=== PATIENT | female | born 2000 | race Caucasian/White ===

== ENCOUNTER 2021-11-03 12:06 | Emergency (ER) | payer OTHER, MEDICAID, SELFPAY ==
[2021-11-03 12:10] VITALS: BP 143/92; PULSE 88; RESP 18; TEMP 37.2; O2SAT 99; BMI 26.4
--- NOTE | 2021-11-03 12:34 | DI.RAD.S_ITS ---
PROCEDURE: XR CHEST 1V INDICATIONS: chest pain TECHNIQUE: One view of the chest was acquired. COMPARISON: None. FINDINGS: Surgical changes and devices: None. Lungs and pleura: On this semiupright portable chest examination, no large pneumothorax or large pleural effusions are seen. No focal infiltrates are seen. Mediastinum: Mediastinal contours appear normal. Heart size is normal. Bones and chest wall: No suspicious bony lesions. Overlying soft tissues appear unremarkable. IMPRESSION: Normal portable chest. Dictated by: Nabil Magana M.D. on 11/03/2021 at 11:43 Approved by: Nabil Magana M.D. on 11/03/2021 at 11:44
[2021-11-03 13:24] VITALS: BP 140/90; PULSE 89; RESP 18; TEMP 36.8; O2SAT 98
[2021-11-03 13:35] LABS: Add Manual Diff / Slide Review NO; Basophils Absolute Auto 100 /uL (0-100); Basophils Percent Auto 1.1 % (0-2); Eosinophils Absolute Auto 0 /uL (0-450); Eosinophils Percent Auto 0.4 % (2-4); Hemoglobin 12.3 g/dL (12.0-16.0); Lymphocytes Absolute Auto 2000 /uL (1100-4500); Lymphocytes Percent Auto 28.3 % (25-40); Mean Corpuscular HGB Conc 33.3 % (30-36); Mean Corpuscular Hemoglobin 24.2 PG (26-34); Mean Corpuscular Volume 72.8 fL (80-100); Monocytes Absolute Auto 400 /uL (0-900); Monocytes Percent Auto 5.9 % (3-14); Neutrophils Absolute Auto 4500 /uL (1500-7000); Neutrophils Percent Auto 64.3 % (50-75); Platelet Count 340 X10^3/uL (150-400); Red Blood Cell Count 5.09 X10^6/uL (4.0-5.2); Red Cell Distribution Width 15.4 % (11.6-14.8); White Blood Cell Count 7.1 X10^3/uL (4.5-11.0)
[2021-11-03 13:48] LABS: Alanine Aminotransferase 25 IU/L (<35); Albumin 4.5 g/dL (3.5-5.0); Albumin Globulin Ratio 1.1 (1.0-2.8); Alkaline Phosphatase 121 U/L (38-126); Aspartate Aminotransferase 24 IU/L (14-36); BUN Creatinine Ratio 8.9 (6-22); Bilirubin Total 0.5 mg/dL (0.2-1.3); Blood Urea Nitrogen 7 mg/dL (7-17); Calcium 9.7 mg/dL (8.4-10.2); Carbon Dioxide 23 mmol/L (22-32); Chloride 105 mmol/L (98-107); Creatine Kinase 43 U/L (30-135); Estimated Glomerular Filt Rate > 60 mL/min (>60); Globulin 4.1 g/dL (1.7-4.1); Glucose 101 mg/dL (70-100); HEMOLYSIS < 15 (0-50); Lipase 67 U/L (23-300); Magnesium 2.1 mg/dL (1.6-2.3); Potassium 3.8 mmol/L (3.4-5.1); Sodium 138 mmol/L (137-145); Total Protein 8.6 g/dL (6.3-8.2)
[2021-11-03 14:00] LABS: Troponin I < 0.012 ng/mL (0.01-0.034)
[2021-11-03 14:21] LABS: Amorphous Sediment Urine 1+; Bacteria Urine Few (2-10); Ictotest Urine Negative (Negative); Mucus Urine 1+ (Negative); RBC Urine None Seen (0-5/HPF); Squamous Epithelial Cell Urine 1-5 /HPF (0-5/HPF); WBC Urine 1-5/HPF (0-5/HPF)
[2021-11-03 15:40] VITALS: BP 156/94; PULSE 92; RESP 18; O2SAT 99
[2021-11-03 16:00] VITALS: BP 132/83; PULSE 78; RESP 14; O2SAT 99
--- NOTE | 2021-11-03 16:11 | ED.CHESTPAIN ---
HPI - Chest Pain <Danielito Corrales PA-C - Last Filed: 11/03/21 20:23> General Chief Complaint: Chest Pain Stated Complaint: Chest Tightness/Heavy Arms/Shakey/Light Headed Time Seen by Provider: 11/03/21 12:55 Source: patient Mode of arrival: Ambulatory Limitations: no limitations History of Present Illness HPI narrative: Patient is a 21-year-old female presenting to the emergency department today for an evaluation chest pain. Patient explains that she began to experience chest heaviness today with associated lightheadedness. She notes that the chest achiness is diffuse throughout the chest without any alleviating or exacerbating factors. Patient denies fever, chills, cough, shortness of breath, nausea, vomiting, diarrhea, constipation, abdominal pain, dysuria, hematuria, jaw pain, pain in the upper extremities, syncope, or any other concerning symptoms. She states that she has been feeling well prior to the onset of her symptoms and denies recent upper respiratory infection symptoms. No further concerns were voiced at this time. Related Data Previous Rx's Medication Instructions Recorded nystatin 100,000 unit/gram topical 1 applic TOPICAL BID #15 g 10/11/20 cream dextroamphetamine-amphetamine 20 20 mg PO BID #60 tab 10/29/21 mg tablet (Adderall) Allergies Allergy/AdvReac Type Severity Reaction Status Date / Time No Known Drug Allergies Allergy Unverified 04/12/21 15:11 Review of Systems <Danielito Corrales PA-C - Last Filed: 11/03/21 20:23> Constitutional Constitutional: Denies chills, Denies fatigue, Denies fever(s), Denies frequent falls, Denies lethargy and Denies weakness Eyes Eyes: Denies loss of vision ENT Ears, Nose, Mouth, and Throat: Denies dizziness and Denies neck pain Cardiovascular Cardiovascular: Reports chest pain, Denies irregular heart rhythm, Denies lightheadedness, Denies palpitations, Denies dyspnea, Denies dyspnea on exertion and Denies orthopnea Respiratory Respiratory: Denies cough, Denies dyspnea, Denies dyspnea on exertion and Denies wheezing Gastrointestinal Gastrointestinal: Denies abdominal pain, Denies change in bowel habits, Denies diarrhea, Denies nausea and Denies vomiting Genitourinary Genitourinary: Denies hematuria, Denies flank pain, Denies urinary incontinence and Denies urinary urgency Musculoskeletal Musculoskeletal: Denies back pain, Denies muscle weakness, Denies neck pain, Denies numbness and Denies tingling Integumentary/Breasts Skin/Breast: Denies pruritus, Denies erythema, Denies rash and Denies wounds Neurologic Neurologic: Denies behavioral changes, Denies confusion, Denies dizziness, Denies frequent falls, Denies loss of vision, Denies numbness, Denies tingling, Denies weakness and Reports other (Lightheaded) Psychiatric Psychiatric: Denies behavioral changes and Denies confusion Endocrine Endocrine: Denies fatigue and Denies palpitations Allergic/Immunologic Allergic/Immunologic: Denies wheezing Patient History <Danielito Corrales PA-C - Last Filed: 11/03/21 20:23> Medical History Acne ADHD (~2004) Pearl infection Eustachian tube dysfunction Family History Grandfather Diabetes mellitus Hyperlipidemia Hypertension Grandmother Hypertension Hyperlipidemia History of heart disease Social History Smoking Status: Never smoker Smoking Status: Never smoker Substance Use Type: does not use Exam <Danielito Corrales PA-C - Last Filed: 11/03/21 20:23> Narrative Exam Narrative: GENERAL: 21 year old patient appears stated age. Well-developed patient, in no acute distress. HEAD: Atraumatic. Normocephalic. EYES: Pupils equal round and reactive. Extraocular motions intact. No scleral icterus. No injection or drainage. ENT: Nose without bleeding, purulent drainage. Throat without erythema, tonsillar hypertrophy or exudate. Airway patent. NECK: Trachea midline. Non tender CARDIOVASCULAR: Tachycardic but regular rhythm without murmurs, gallops, or rubs. RESPIRATORY: Clear to auscultation. Breath sounds equal bilaterally. No wheezes, rales, or rhonchi. GASTROINTESTINAL: Abdomen soft, non-tender, nondistended. EXTREMITIES: No edema or joint tenderness. BACK: Nontender without deformity or crepitance. No flank tenderness. NEURO: AOx3. SKIN: No rash or erythema of visible areas Initial Vital Signs Initial Vital Signs: Vital Signs Temperature 99 F 04/16/22 12:10 Pulse Rate 88 11/03/21 12:10 Respiratory Rate 18 11/03/21 12:10 Blood Pressure 143/92 H 11/03/21 12:10 Pulse Oximetry 99 11/03/21 12:10 <aSndra Nick MD - Last Filed: 11/10/21 07:20> Initial Vital Signs Initial Vital Signs: Vital Signs Temperature 99 F 11/03/21 12:10 Pulse Rate 88 11/03/21 12:10 Respiratory Rate 18 11/03/21 12:10 Blood Pressure 143/92 H 11/03/21 12:10 Pulse Oximetry 99 11/03/21 12:10 Course <Danielito Corrales PA-C - Last Filed: 11/03/21 20:23> Course Course Narrative: CBC, CMP, lipase, magnesium, troponin with repeat troponin, ictotest, urine dip, urinalysis, urine culture, EKG, chest x-ray obtained. I discussed results lab studies and imaging with patient and informed her that I will be running a repeat troponin to ensure that there is no elevation. Orders Ordered: ED Orders 11/03/21 12:31 EKG-12 Lead Stat 11/03/21 12:34 XR chest 1V Stat 11/03/21 13:28 Complete Blood Count AUTO DIFF Stat Comprehensive Metabolic Panel Stat Lipase Stat Magnesium Stat Troponin & CK Cardiac Panel Stat 11/03/21 13:40 Ictotest Urine Stat Urine Culture Stat Urine Microscopic Stat 11/03/21 15:43 Trop I [Troponin I] Stat Vital Signs Vital signs: Vital Signs - 8 hr 11/03/21 13:24 11/03/21 15:40 11/03/21 16:00 Temperature 98.2 F Pulse Rate 89 92 H 78 Respiratory Rate 18 18 14 Blood Pressure 140/90 156/94 H 132/83 Pulse Oximetry 98 99 99 11/03/21 16:30 Temperature Pulse Rate 73 Respiratory Rate 16 Blood Pressure 129/87 Pulse Oximetry 100 <Sandra Nick MD - Last Filed: 11/10/21 07:20> Orders Ordered: ED Orders 11/03/21 12:31 EKG-12 Lead Stat 11/03/21 12:34 XR chest 1V Stat 11/03/21 13:28 Complete Blood Count AUTO DIFF Stat Comprehensive Metabolic Panel Stat Lipase Stat Magnesium Stat Troponin & CK Cardiac Panel Stat 11/03/21 13:40 Ictotest Urine Stat Urine Culture Stat Urine Microscopic Stat 11/03/21 15:43 Trop I [Troponin I] Stat Vital Signs Vital signs: Vital Signs - 8 hr 11/03/21 13:24 11/03/21 15:40 11/03/21 16:00 Temperature 98.2 F Pulse Rate 89 92 H 78 Respiratory Rate 18 18 14 Blood Pressure 140/90 156/94 H 132/83 Pulse Oximetry 98 99 99 11/03/21 16:30 Temperature Pulse Rate 73 Respiratory Rate 16 Blood Pressure 129/87 Pulse Oximetry 100 MDM - Chest Pain <Danielito Corrales PA-C - Last Filed: 11/03/21 20:23> Lab Data Result diagrams: 11/03/21 13:28 11/03/21 13:28 Labs: Lab Results 11/03/21 11/03/21 11/03/21 Range/Units 13:28 13:28 13:40 WBC 7.1 (4.5-11.0) X10^3/uL RBC 5.09 (4.0-5.2) X10^6/uL Hgb 12.3 (12.0-16.0) g/dL Hct 37.0 (36-46) % MCV 72.8 L (80-100) fL MCH 24.2 L (26-34) PG MCHC 33.3 (30-36) % RDW 15.4 H (11.6-14.8) % Plt Count 340 (150-400) X10^3/uL Neut % (Auto) 64.3 (50-75) % Lymph % (Auto) 28.3 (25-40) % Petroleum % (Auto) 5.9 (3-14) % Eos % (Auto) 0.4 L (2-4) % Baso % (Auto) 1.1 (0-2) % Neut # (Auto) 4500 (9832-8454) /uL Lymph # (Auto) 2000 (6126-3240) /uL Petroleum # (Auto) 400 (0-900) /uL Eos # (Auto) 0 (0-450) /uL Baso # (Auto) 100 (0-100) /uL Sodium 138 (137-145) mmol/L Potassium 3.8 (3.4-5.1) mmol/L Chloride 105 (98-107) mmol/L Carbon Dioxide 23 (22-32) mmol/L BUN 7 (7-17) mg/dL Creatinine 0.79 (0.52-1.04) mg/dL Estimated GFR > 60 (>60) mL/min BUN/Creatinine Ratio 8.9 (6-22) Glucose 101 H (70-100) mg/dL Calcium 9.7 (8.4-10.2) mg/dL Magnesium 2.1 (1.6-2.3) mg/dL Total Bilirubin 0.5 (0.2-1.3) mg/dL AST 24 (14-36) IU/L ALT 25 (<35) IU/L Alkaline Phosphatase 121 (38-126) U/L Total Creatine Kinase 43 (30-135) U/L CK-MB (CK-2) TNP CK-MB (CK-2) Rel Index TNP Troponin I < 0.012 (0.01-0.034) ng/mL Total Protein 8.6 H (6.3-8.2) g/dL Albumin 4.5 (3.5-5.0) g/dL Globulin 4.1 (1.7-4.1) g/dL Albumin/Globulin Ratio 1.1 (1.0-2.8) Lipase 67 (23-300) U/L Ur Bilirubin Confirm Negative (Negative) Urine RBC None seen (0-5/HPF) Urine WBC 1-5/hpf (0-5/HPF) Ur Squamous Epith Cells 1-5 /hpf (0-5/HPF) Amorphous Sediment 1+ Urine Bacteria Few (2-10) H (None) Urine Mucus 1+ H (Negative) Ur Culture Indicated? Culture not indicate 11/03/21 Range/Units 15:43 WBC (4.5-11.0) X10^3/uL RBC (4.0-5.2) X10^6/uL Hgb (12.0-16.0) g/dL Hct (36-46) % MCV (80-100) fL MCH (26-34) PG MCHC (30-36) % RDW (11.6-14.8) % Plt Count (150-400) X10^3/uL Neut % (Auto) (50-75) % Lymph % (Auto) (25-40) % Petroleum % (Auto) (3-14) % Eos % (Auto) (2-4) % Baso % (Auto) (0-2) % Neut # (Auto) (5312-6153) /uL Lymph # (Auto) (5826-9844) /uL Petroleum # (Auto) (0-900) /uL Eos # (Auto) (0-450) /uL Baso # (Auto) (0-100) /uL Sodium (137-145) mmol/L Potassium (3.4-5.1) mmol/L Chloride (98-107) mmol/L Carbon Dioxide (22-32) mmol/L BUN (7-17) mg/dL Creatinine (0.52-1.04) mg/dL Estimated GFR (>60) mL/min BUN/Creatinine Ratio (6-22) Glucose (70-100) mg/dL Calcium (8.4-10.2) mg/dL Magnesium (1.6-2.3) mg/dL Total Bilirubin (0.2-1.3) mg/dL AST (14-36) IU/L ALT (<35) IU/L Alkaline Phosphatase (38-126) U/L Total Creatine Kinase (30-135) U/L CK-MB (CK-2) CK-MB (CK-2) Rel Index Troponin I < 0.012 (0.01-0.034) ng/mL Total Protein (6.3-8.2) g/dL Albumin (3.5-5.0) g/dL Globulin (1.7-4.1) g/dL Albumin/Globulin Ratio (1.0-2.8) Lipase (23-300) U/L Ur Bilirubin Confirm (Negative) Urine RBC (0-5/HPF) Urine WBC (0-5/HPF) Ur Squamous Epith Cells (0-5/HPF) Amorphous Sediment Urine Bacteria (None) Urine Mucus (Negative) Ur Culture Indicated? Point of Care Testing Test Results Negative Urine Dip Bedside Urine Glucose Negative Bedside Urine Bilirubin + 1 Bedside Urine Ketone - Negative Urine Specific Mcnary 1.030 Bedside Urine Occult Blood - Negative Bedside Urine pH 6 Bedside Urine Protein +/- 15 Bedside Urine Urobilinogen - Negative Bedside Urine Nitrite - Negative Bedside Urine Leukocytes - Negative Esterase Imaging Data Chest x-ray: Radiologist's Impression: PROCEDURE:? XR CHEST 1V ? INDICATIONS:? chest pain ? TECHNIQUE:? One view of the chest was acquired.? ? COMPARISON:? None. ? FINDINGS:? ? Surgical changes and devices:? None.? ? Lungs and pleura:? On this semiupright portable chest examination, no large pneumothorax or large pleural effusions are seen.? No focal infiltrates are seen.? ? Mediastinum:? Mediastinal contours appear normal.? Heart size is normal.? ? Bones and chest wall:? No suspicious bony lesions.? Overlying soft tissues appear unremarkable.? IMPRESSION:? ? Normal portable chest. ? ? Dictated by: Nabil Magana M.D. on 11/03/2021 at 11:43 ? ? Approved by: Nabil Magana M.D. on 11/03/2021 at 11:44? MDM Narrative Medical decision making narrative: Differential diagnosis to consider but not limited to acute coronary syndrome versus myocardial infarction versus pneumonia versus costochondritis versus atypical chest pain versus musculoskeletal chest pain versus rib fracture versus anxiety. I discussed results of x-ray and lab studies with patient and informed her that no acute abnormality was identified today that would require emergent intervention or admission to hospital. I encouraged the patient to follow-up with her primary care provider regarding the symptoms in her increased blood pressure. Patient's blood pressure has dropped since initial evaluation, however I did urge her to follow up with her primary care provider to ensure that her blood pressure remains within normal limits. She expresses understanding and agrees to plan. She states that this time she is comfortable being discharged home and is stable for discharge. Strict return precautions were discussed with the patient prior to discharge. <Sandra Nick MD - Last Filed: 11/10/21 07:20> Lab Data Labs: Lab Results 11/03/21 11/03/21 11/03/21 Range/Units 13:28 13:28 13:40 WBC 7.1 (4.5-11.0) X10^3/uL RBC 5.09 (4.0-5.2) X10^6/uL Hgb 12.3 (12.0-16.0) g/dL Hct 37.0 (36-46) % MCV 72.8 L (80-100) fL MCH 24.2 L (26-34) PG MCHC 33.3 (30-36) % RDW 15.4 H (11.6-14.8) % Plt Count 340 (150-400) X10^3/uL Neut % (Auto) 64.3 (50-75) % Lymph % (Auto) 28.3 (25-40) % Petroleum % (Auto) 5.9 (3-14) % Eos % (Auto) 0.4 L (2-4) % Baso % (Auto) 1.1 (0-2) % Neut # (Auto) 4500 (1810-2751) /uL Lymph # (Auto) 2000 (1648-6782) /uL Petroleum # (Auto) 400 (0-900) /uL Eos # (Auto) 0 (0-450) /uL Baso # (Auto) 100 (0-100) /uL Sodium 138 (137-145) mmol/L Potassium 3.8 (3.4-5.1) mmol/L Chloride 105 (98-107) mmol/L Carbon Dioxide 23 (22-32) mmol/L BUN 7 (7-17) mg/dL Creatinine 0.79 (0.52-1.04) mg/dL Estimated GFR > 60 (>60) mL/min BUN/Creatinine Ratio 8.9 (6-22) Glucose 101 H (70-100) mg/dL Calcium 9.7 (8.4-10.2) mg/dL Magnesium 2.1 (1.6-2.3) mg/dL Total Bilirubin 0.5 (0.2-1.3) mg/dL AST 24 (14-36) IU/L ALT 25 (<35) IU/L Alkaline Phosphatase 121 (38-126) U/L Total Creatine Kinase 43 (30-135) U/L CK-MB (CK-2) TNP CK-MB (CK-2) Rel Index TNP Troponin I < 0.012 (0.01-0.034) ng/mL Total Protein 8.6 H (6.3-8.2) g/dL Albumin 4.5 (3.5-5.0) g/dL Globulin 4.1 (1.7-4.1) g/dL Albumin/Globulin Ratio 1.1 (1.0-2.8) Lipase 67 (23-300) U/L Ur Bilirubin Confirm Negative (Negative) Urine RBC None seen (0-5/HPF) Urine WBC 1-5/hpf (0-5/HPF) Ur Squamous Epith Cells 1-5 /hpf (0-5/HPF) Amorphous Sediment 1+ Urine Bacteria Few (2-10) H (None) Urine Mucus 1+ H (Negative) Ur Culture Indicated? Culture not indicate 11/03/21 Range/Units 15:43 WBC (4.5-11.0) X10^3/uL RBC (4.0-5.2) X10^6/uL Hgb (12.0-16.0) g/dL Hct (36-46) % MCV (80-100) fL MCH (26-34) PG MCHC (30-36) % RDW (11.6-14.8) % Plt Count (150-400) X10^3/uL Neut % (Auto) (50-75) % Lymph % (Auto) (25-40) % Petroleum % (Auto) (3-14) % Eos % (Auto) (2-4) % Baso % (Auto) (0-2) % Neut # (Auto) (2931-2157) /uL Lymph # (Auto) (7153-4635) /uL Petroleum # (Auto) (0-900) /uL Eos # (Auto) (0-450) /uL Baso # (Auto) (0-100) /uL Sodium (137-145) mmol/L Potassium (3.4-5.1) mmol/L Chloride (98-107) mmol/L Carbon Dioxide (22-32) mmol/L BUN (7-17) mg/dL Creatinine (0.52-1.04) mg/dL Estimated GFR (>60) mL/min BUN/Creatinine Ratio (6-22) Glucose (70-100) mg/dL Calcium (8.4-10.2) mg/dL Magnesium (1.6-2.3) mg/dL Total Bilirubin (0.2-1.3) mg/dL AST (14-36) IU/L ALT (<35) IU/L Alkaline Phosphatase (38-126) U/L Total Creatine Kinase (30-135) U/L CK-MB (CK-2) CK-MB (CK-2) Rel Index Troponin I < 0.012 (0.01-0.034) ng/mL Total Protein (6.3-8.2) g/dL Albumin (3.5-5.0) g/dL Globulin (1.7-4.1) g/dL Albumin/Globulin Ratio (1.0-2.8) Lipase (23-300) U/L Ur Bilirubin Confirm (Negative) Urine RBC (0-5/HPF) Urine WBC (0-5/HPF) Ur Squamous Epith Cells (0-5/HPF) Amorphous Sediment Urine Bacteria (None) Urine Mucus (Negative) Ur Culture Indicated? Point of Care Testing Test Results Negative Urine Dip Bedside Urine Glucose Negative Bedside Urine Bilirubin + 1 Bedside Urine Ketone - Negative Urine Specific Mcnary 1.030 Bedside Urine Occult Blood - Negative Bedside Urine pH 6 Bedside Urine Protein +/- 15 Bedside Urine Urobilinogen - Negative Bedside Urine Nitrite - Negative Bedside Urine Leukocytes - Negative Esterase Discharge Plan Departure Patient Disposition: Home Clinical Impression: Chest pain Instructions: DI for Chest Pain Activity Restrictions/Additional Instructions: *You have been diagnosed with chest pain *What to do: *Please continue to take your regular medications as directed. [ ] New medication prescriptions sent to your pharmacy: [ ] [ ] New medication written as a paper prescription [X] No new medications given You were evaluated in the emergency department today for chest pain. Lab studies and imaging obtained in the emergency department today returned within normal limits with no signs of acute abnormality that would require emergent intervention or admission to the hospital. I recommend that you follow-up with the primary care provider within the next 2-3 days for further evaluation and management. It is important to follow-up regarding her elevated blood pressure to ensure that id remains within normal limits. Please do not hesitate to return to the emergency department if you experience worsening chest pain, shortness of breath, unexplained sweating, pain with deep breaths, or any other concerning symptoms. *Please follow up with your primary care provider in 2-3 days, call for an appointment. Let them know you were seen in the Emergency Department and that we ask that you be seen in follow up. We will electronically transmit a record of today's note if your PCP is in our system *If you do not have a primary care provider please contact the [facility] Resource line at [phone]. They will ask some questions about your medical history and help get you set up with a doctor in the community. *Return to Emergency Department if you should have any new, worsening or concerning symptoms, such as fever greater than 101 F, shaking chills, worsening pain, persistent vomiting or other bothersome symptoms. Prescriptions: No Action dextroamphetamine-amphetamine [Adderall] 20 mg tablet 20 mg PO BID Qty: 60 0RF Rx Instructions: administer doses at least 4-6 hours apart nystatin 100,000 unit/gram cream 1 applic topical BID Qty: 15 0RF Rx Instructions: use until healing is complete Referrals: Danyel Oseguera MD [Primary Care Provider] - <Sandra Nick MD - Last Filed: 11/10/21 07:20> Cosign ED Attending Cosignature Attestation: I was immediately available in the department for consultation throughout this patient's visit. I agree with documentation as above. Sandra Nick MD
[2021-11-03 16:15] LABS: Troponin I < 0.012 ng/mL (0.01-0.034)
[2021-11-03 16:30] VITALS: BP 129/87; PULSE 73; RESP 16; O2SAT 100
== END 2021-11-03 16:48 | disposition home or self-care (01) ==
PROVIDERS: Emergency Medicine; Emergency Provider Physician Assistant; PCP Family Medicine
DX: R07.9 Chest pain, unspecified (principal)
CPT/HCPCS: 36415; 71045; 80053; 81003; 81015; 81025; 82550; 83690; 83735; 84484; 85025; 87086; 93005; 99282; 99284

== ENCOUNTER → 2022-11-05 16:24 | Outpatient (CLI) | payer OTHER, MEDICAID, SELFPAY ==
[2022-11-05 17:57] LABS: Add Manual Diff / Slide Review NO; Basophils Absolute Auto 100 /uL (0-100); Basophils Percent Auto 1.1 % (0-2); Eosinophils Absolute Auto 100 /uL (0-450); Eosinophils Percent Auto 1.2 % (2-4); Hematocrit 36.2 % (36-46); Hemoglobin 11.7 g/dL (12.0-16.0); Lymphocytes Absolute Auto 2600 /uL (1100-4500); Lymphocytes Percent Auto 40.9 % (25-40); Mean Corpuscular HGB Conc 32.2 % (30-36); Mean Corpuscular Hemoglobin 23.4 PG (26-34); Mean Corpuscular Volume 72.6 fL (80-100); Monocytes Absolute Auto 600 /uL (0-900); Monocytes Percent Auto 8.8 % (3-14); Neutrophils Absolute Auto 3000 /uL (1500-7000); Platelet Count 320 X10^3/uL (150-400); Red Blood Cell Count 4.98 X10^6/uL (4.0-5.2); Red Cell Distribution Width 16.6 % (11.6-14.8); White Blood Cell Count 6.3 X10^3/uL (4.5-11.0)
[2022-11-05 18:21] LABS: HEMOLYSIS < 15 (0-50); Iron 23 ug/dL (37-170)
[2022-11-05 18:31] LABS: Alanine Aminotransferase 25 IU/L (<35); Albumin 4.4 g/dL (3.5-5.0); Albumin Globulin Ratio 1.1 (1.0-2.8); Alkaline Phosphatase 78 U/L (38-126); Aspartate Aminotransferase 23 IU/L (14-36); BUN Creatinine Ratio 16.7 (6-22); Bilirubin Total 0.3 mg/dL (0.2-1.3); Blood Urea Nitrogen 11 mg/dL (7-17); Calcium 9.3 mg/dL (8.4-10.2); Carbon Dioxide 24 mmol/L (22-32); Chloride 102 mmol/L (98-107); Estimated Glomerular Filt Rate > 60 mL/min (>60); Globulin 4.1 g/dL (1.7-4.1); Glucose 98 mg/dL (70-100); HEMOLYSIS < 15 (0-50); Potassium 3.7 mmol/L (3.4-5.1); Sodium 137 mmol/L (137-145); Total Protein 8.5 g/dL (6.3-8.2)
[2022-11-05 18:33] LABS: Percent Iron Saturation 5 % (15-50); Total Iron Binding Capacity 501 ug/dL (265-497); Transferrin 375 mg/dL (206-381)
[2022-11-05 19:00] LABS: Ferritin 4 ng/mL (6-137)
== END ==
PROVIDERS: PCP Family Medicine; Referring Provider Family Medicine; Visit Provider Family Medicine
DX: D64.9 Anemia, unspecified (principal); F90.9 Attention-deficit hyperactivity disorder, unspecified type; R53.83 Other fatigue
CPT/HCPCS: 36415; 80053; 82728; 83540; 83550; 84443; 85025

== ENCOUNTER → 2024-02-24 15:12 | Outpatient (CLI) | payer OTHER, MEDICAID, SELFPAY ==
[2024-02-24 16:04] LABS: Add Manual Diff / Slide Review NO; Basophils Absolute Auto 100 /uL (0-100); Basophils Percent Auto 0.9 % (0-2); Eosinophils Absolute Auto 100 /uL (0-450); Eosinophils Percent Auto 0.9 % (2-4); Hematocrit 43.4 % (36-46); Lymphocytes Absolute Auto 3100 /uL (1100-4500); Lymphocytes Percent Auto 33.4 % (25-40); Mean Corpuscular HGB Conc 34.6 % (30-36); Mean Corpuscular Hemoglobin 30.1 PG (26-34); Mean Corpuscular Volume 87.1 fL (80-100); Monocytes Absolute Auto 500 /uL (0-900); Monocytes Percent Auto 5.7 % (3-14); Neutrophils Absolute Auto 5500 /uL (1500-7000); Neutrophils Percent Auto 59.1 % (50-75); Platelet Count 319 X10^3/uL (150-400); Red Blood Cell Count 4.98 X10^6/uL (4.0-5.2); Red Cell Distribution Width 13.1 % (11.6-14.8); White Blood Cell Count 9.3 X10^3/uL (4.5-11.0)
[2024-02-24 17:39] LABS: Ferritin 12 ng/mL (6-137)
[2024-02-24 18:02] LABS: HEMOLYSIS 21 (0-50); Iron 103 ug/dL (37-170)
[2024-02-24 18:33] LABS: TSH w/ Reflex to FT4 0.37 uIU/mL (0.47-4.68)
[2024-02-24 18:51] LABS: Transferrin 347 mg/dL (206-381)
[2024-02-24 19:01] LABS: Percent Iron Saturation 23 % (15-50); Total Iron Binding Capacity 451 ug/dL (265-497)
[2024-02-24 19:02] LABS: Free T4, Direct Thyroxine 1.44 ng/dL (0.78-2.19)
== END ==
LOC: LAB 15:13
PROVIDERS: PCP Family Medicine; Referring Provider Family Medicine; Visit Provider Family Medicine
DX: F90.9 Attention-deficit hyperactivity disorder, unspecified type (principal); D50.9 Iron deficiency anemia, unspecified
CPT/HCPCS: 36415; 82728; 83540; 83550; 84439; 84443; 85025

== ENCOUNTER → 2024-11-15 16:25 | Outpatient (CLI) | payer OTHER, SELFPAY ==
[2024-11-15 17:28] LABS: Add Manual Diff / Slide Review NO; Basophils Absolute Auto 100 /uL (0-100); Basophils Percent Auto 0.8 % (0-2); Eosinophils Absolute Auto 100 /uL (0-450); Eosinophils Percent Auto 1.8 % (2-4); Hemoglobin 15.1 g/dL (12.0-16.0); Lymphocytes Absolute Auto 2700 /uL (1100-4500); Lymphocytes Percent Auto 37.9 % (25-40); Mean Corpuscular HGB Conc 33.7 % (30-36); Mean Corpuscular Hemoglobin 29.7 PG (26-34); Mean Corpuscular Volume 88.2 fL (80-100); Monocytes Absolute Auto 400 /uL (0-900); Monocytes Percent Auto 6.1 % (3-14); Neutrophils Absolute Auto 3700 /uL (1500-7000); Neutrophils Percent Auto 53.4 % (50-75); Platelet Count 289 X10^3/uL (150-400); Red Cell Distribution Width 12.6 % (11.6-14.8)
[2024-11-15 17:40] LABS: HEMOLYSIS < 15 (0-50); Iron 113 ug/dL (37-170)
[2024-11-15 17:43] LABS: Alanine Aminotransferase 14 IU/L (<35); Albumin 4.6 g/dL (3.5-5.0); Albumin Globulin Ratio 1.3 (1.0-2.8); Alkaline Phosphatase 69 U/L (38-126); Aspartate Aminotransferase 22 IU/L (14-36); BUN Creatinine Ratio 13.2 (6-22); Bilirubin Total 0.5 mg/dL (0.2-1.3); Blood Urea Nitrogen 10 mg/dL (7-17); Calcium 9.7 mg/dL (8.4-10.2); Carbon Dioxide 21 mmol/L (22-32); Chloride 105 mmol/L (98-107); Estimated Glomerular Filt Rate > 60 mL/min (>60); Globulin 3.6 g/dL (1.7-4.1); Glucose 108 mg/dL (70-99); HEMOLYSIS < 15 (0-50); Potassium 3.7 mmol/L (3.4-5.1); Sodium 138 mmol/L (137-145); Total Protein 8.2 g/dL (6.3-8.2)
[2024-11-15 17:53] LABS: Percent Iron Saturation 29 % (15-50); Total Iron Binding Capacity 393 ug/dL (265-497); Transferrin 338 mg/dL (206-381)
[2024-11-15 18:12] LABS: TSH w/ Reflex to FT4 0.06 uIU/mL (0.47-4.68)
[2024-11-15 18:17] LABS: Ferritin 17 ng/mL (6-137)
[2024-11-15 18:41] LABS: Free T4, Direct Thyroxine 1.11 ng/dL (0.78-2.19)
== END ==
PROVIDERS: PCP Family Medicine; Referring Provider Family Medicine; Visit Provider Family Medicine
DX: D50.9 Iron deficiency anemia, unspecified (principal); F90.9 Attention-deficit hyperactivity disorder, unspecified type; E05.90 Thyrotoxicosis, unspecified without thyrotoxic crisis or storm
CPT/HCPCS: 36415; 80053; 82728; 83540; 83550; 84439; 84443; 85025

== ENCOUNTER → 2025-01-06 08:44 | Outpatient (CLI) | payer OTHER, SELFPAY ==
--- NOTE | 2025-01-06 08:45 | DI.NM.S_ITS ---
PROCEDURE: NM UPTAKE AND SCAN RADIOPHARMACEUTICAL: 384 ???Ci I-123 sodium iodide by mouth. INDICATIONS: Subclinical hyperthyroidism TECHNIQUE: I-123 sodium iodide was administered orally. Anterior neck images were obtained, and iodine uptake by the thyroid gland calculated using rotary slicing machine operator's software. COMPARISON: None. FINDINGS: Morphology: Overall expected morphology of the thyroid, with slightly increased activity in the right lobe. No significant nodules. Uptake: 6 hour thyroid uptake is 27.6 % ; normal ranges are from 6-18%. 24 hour thyroid uptake is 44.6% ; normal ranges are from 10-30%. IMPRESSION: Mildly increased 6 and 24 hour uptake. No definite nodule seen by scintigraphy. Dictated by: Yazan Barillas M.D. on 01/07/2025 at 12:01 Approved by: Yazan Barillas M.D. on 01/07/2025 at 12:03
== END ==
LOC: NUCM 08:45
PROVIDERS: PCP Family Medicine; Referring Provider Family Medicine; Visit Provider Family Medicine
DX: E05.90 Thyrotoxicosis, unspecified without thyrotoxic crisis or storm (principal)
CPT/HCPCS: 78014; A9516